=== PATIENT | female | born 1950 | race Caucasian/White ===

== ENCOUNTER 2018-01-08 09:21 | Observation (INO) | payer OTHER ==
[2018-01-08] MEDS ORDERED: LIDOCAINE 5% TOPICAL PATCH TP ONE (09:30)
[2018-01-08] MEDS ORDERED: ACETAMINOPHEN 1000 MG/100 ML VIAL (NON FORMULARY) IVPB ONE (09:30)
[2018-01-08] MEDS ORDERED: SODIUM CHLORIDE 0.9% 500 ML INFUS.BAG IV ONE ×2 (09:30→11:07)
--- NOTE | 2018-01-08 09:48 | PDOC ---
History of Present Illness - General Chief Complaint: Syncope/Near Syncope Stated Complaint: Syncope/Near Syncope History Source: Patient - History of Present Illness Initial Comments: The patient is a 67F w/ a history of a-fib (Eliquis) and 'a leaky valve' who presents from clinic s/p syncopal fall just HIDE TRIMMER. The patient endorses LOC, does not know if she hit her head, and is endorsing acute L foot pain. The patient states that she has been having 3-4 days of watery diarrhea (w/o blood), subjective fevers, productive cough (clear sputum) and chills who was at her doctor's office when she experienced an observed syncopal fall. Per EMS, the patient reportedly hit her head. She endorses LOC, does not recall hitting her head. She denies a history of syncopal falls. Currently her chief complaint is lightheadedness and L foot/ankle pain. She also endorses non-midline neck pain since her fall. She denies MEDLEY, changes in vision, chest pain, SOB, or changes in sensation. She reports taking her Eliquis this morning. 01/08/18 09:47 Past History - Past Medical History Allergies/Adverse Reactions: Allergies Allergy/AdvReac Type Severity Reaction Status Date / Time aspirin Allergy BLEEDING Verified 01/08/18 11:07 Beta-Blockers Allergy RESPIRATORY Verified 01/08/18 11:08 (Beta-Adrenergic Bloc FAILURE celery Allergy UNKNOWN Verified 01/08/18 11:07 clindamycin Allergy BOILS Verified 01/08/18 11:07 codeine Allergy Vomiting Verified 01/08/18 11:09 egg Allergy SWELLING Verified 01/08/18 11:07 THROAT gluten Allergy ABD Verified 01/08/18 11:07 PAIN/VOMITING/BLOATING Penicillins Allergy unknown Verified 01/08/18 09:27 soy Allergy SWELLING/TH Verified 01/08/18 11:07 ROAT Home Medications: Ambulatory Orders Apixaban [Eliquis] 5 mg PO BID 01/08/18 Diltiazem Cd [Cardizem Cd -] 240 mg PO DAILY 01/08/18 Furosemide [Lasix] 20 mg PO DAILY 01/08/18 Levothyroxine Sodium [Unithroid] 150 mcg PO DAILY 01/08/18 Cardiac Disorders: Yes (WPW; a-fib; HFrEF (40%); MVR; TVR) Thyroid Disease: Yes (iatrogenic hyperthyroid) - Surgical History Other Surgical History: Tonsillectomy; C/s x2 01/08/18 11:18 Review of Systems - Review of Systems Able to Perform ROS?: Yes Comments:: GENERAL/CONSTITUTIONAL: +subjective fever and chills HEAD, EYES, EARS, NOSE AND THROAT: No change in vision. No ear pain or discharge. No sore throat CARDIOVASCULAR: No chest pain or shortness of breath RESPIRATORY: + productive cough; No wheezing, or hemoptysis GASTROINTESTINAL: +watery diarrhea; No nausea, vomiting GENITOURINARY: No dysuria, frequency, or change in urination MUSCULOSKELETAL: +L foot pain that is worst over her sole; Otherwise No joint or muscle swelling or pain. No neck or back pain SKIN: No rash NEUROLOGIC: +Lightheadedness and LOC; No headache or change in strength/ sensation HEMATOLOGIC/LYMPHATIC: +Eliquis ALLERGIC/IMMUNOLOGIC: No hives or skin allergy 01/08/18 09:57 Is the patient limited Syriac proficient: No *Physical Exam - Physical Exam Comments: GENERAL: Awake, alert, and fully oriented, in no acute distress HEAD: No signs of trauma, normocephalic, atraumatic EYES: PERRL, EOMI, sclera anicteric, conjunctiva clear ENT: Hearing grossly normal, nares patent, oropharynx clear without exudates. Moist mucosa NECK: Normal ROM, supple LUNGS: No distress, speaks full sentences, clear to auscultation bilaterally HEART: Regular rate and irregular rhythm, normal S1 and S2, no murmurs appreciated, peripheral pulses normal and equal bilaterally ABDOMEN: Soft, nontender, normoactive bowel sounds. No guarding, no rebound EXTREMITIES : +L b/l malleolar TTP; +L metatarsal TTP; Normal inspection, Normal range of motion, no edema. No clubbing or cyanosis NEUROLOGICAL: Cranial nerves II through XII grossly intact. Normal speech, no focal sensorimotor deficits SKIN: L elbow abrasion approx 1.5cm x 1.5cm 01/08/18 09:59 ED Treatment Course - LABORATORY CBC & Chemistry Diagram: 01/08/18 09:45 01/08/18 09:45 - RADIOLOGY Radiology Studies Ordered: Category Date Time Status HEAD CT WITHOUT CONTRAST [CT] Stat CT Scan 08/24/18 09:29 Ordered ANKLE & FOOT-LEFT* [RAD] Stat Radiology 01/08/18 09:29 Ordered CHEST PA & LAT [RAD] Stat Radiology 01/08/18 09:29 Ordered Medical Decision Making - Medical Decision Making The patient is a 67F with a history of a-fib, HF, and hypothyroidism who presents s/p syncopal fall while at work with +LOC. Patient also reports 4d of watery/non-bloody diarrhea. She also reports new onset L foot pain s/p fall. Ddx: ACS, orthostatic hypotension, dysrhythmia, sepsis; not likely but considered stroke Patient evaluated for acute trauma. Possible L foot fx CT Head w/o evidence of acute hemorrhage CT c-spine w/o evidence of acute fx or subluxation 01/08/18 12:15 Acute L 3rd & 4th distal metatarsal fx, will splint and have pt f/u with ortho Ortho consulted (Dr. Arce) 01/08/18 12:55 Patient placed in L posterior leg splint for metatarsal fx's Patient neurovascularly intact pre and post procedure Patient counseled about alterting staff if she perceives any numbness/tingling/ change in sensation or change in color/coolness to palpation Cardiology consulted for evaluation 01/08/18 13:29 Plan for admission for under obs for ACS r/o. Patient to f/u with ortho. *DC/Admit/Observation/Transfer Diagnosis at time of Disposition: ACS (acute coronary syndrome) A-fib Qualifiers: Atrial fibrillation type: chronic Qualified Code(s): I48.2 - Chronic atrial fibrillation Hypothyroidism Qualifiers: Hypothyroidism type: unspecified Qualified Code(s): E03.9 - Hypothyroidism, unspecified - Discharge Dispostion Condition at time of disposition: Guarded Decision to Admit order: Yes - Referrals - Patient Instructions - Post Discharge Activity
[2018-01-08] MEDS ORDERED: LIDOCAINE 5% TOPICAL PATCH ONE ×2 (09:49→09:50)
[2018-01-08] MEDS ORDERED: ACETAMINOPHEN INJECTION 100 ML IVPB ONE (09:49)
--- NOTE | 2018-01-08 09:51 | PDOC ---
Attending Attestation - HPI HPI: The patient is a 67 year old female with PMHx of afib on eliquis, reported leaky valve, who presents from clinic s/p syncopal fall. Patient states that she was walking when she began feeling faint and lightheaded, lost consciousness and hit her head. She is now complaining of left foot pain as well as dorsal neck pain s/p fall. She sustained an abrasion to her left elbow. She also endorses 4 days of cough, congestion, non-bloody watery diarrhea, fever , and chills.She reports sick contact at home. Denies vomiting. States she took morning dose of eliquis today. She is unable to recall her last tetanus Denies recent travel, recent antibiotics use. Denies h/o AR or stents. Allergies: gluten Social Hx: Former smoker - Physicial Exam PE: GENERAL: Awake, alert, and fully oriented, in no acute distress HEAD: No signs of trauma EYES: PERRLA, EOMI, sclera anicteric, conjunctiva clear ENT: Auricles normal inspection, hearing grossly normal, nares patent, oropharynx clear without exudates. Moist mucosa NECK: No c-spine tenderness to palpation, right cervical paraspinal tenderness to palpation.Normal ROM, supple, no lymphadenopathy, JVD, or masses LUNGS: Breath sounds equal, clear to auscultation bilaterally. No wheezes, and no crackles HEART: Regular rate and rhythm, normal S1 and S2, no murmurs, rubs or gallops ABDOMEN: Soft, nontender, normoactive bowel sounds. No guarding, no rebound. No masses EXTREMITIES: L elbow - FROM, no tenderness. Pelvis - stable, no tenderness. L ankle - FROM, no tenderness. L foot - diffusely tender to palpaion along dorsum of left foot. 2+ DP pulses for left foot. < 2 second capillary refill. No edema. No clubbing or cyanosis. No cords or erythema. NEUROLOGICAL: Cranial nerves II through XII grossly intact. Normal speech, normal gait SKIN: Small abrasion to left elbow. Warm, Dry, normal turgor, no rashes or lesions noted. <Rhonda Lozada - Last Filed: 01/08/18 10:13> - Resident Resident Name: Lyndon Ann - ED Attending Attestation I have performed the following: I have examined & evaluated the patient, The case was reviewed & discussed with the resident, I agree w/resident's findings & plan, Exceptions are as noted - Medical Decision Making 01/08/18 10:07 A portion of this note was written by my scribe, under my supervision. Vital Signs Temp Pulse Resp BP Pulse Ox 98.9 F 86 20 93/78 96 01/08/18 09:25 01/08/18 09:25 01/08/18 09:25 01/08/18 09:25 01/08/18 09:25 67 year old female c/ hx of , hyperthyroidism, WPW, EF 40% (CHF), Mitral and tricuspid regurgitation, gluten allergy, atrial fibrillation on eliquis, "leaky valve" presents with syncope. Pt has endorsed 4 days of loose watery stool and 1 day of URI and chest congestion. Reported tactile fevers and chills at home. No nausea or vomiting. Denies recent travel, bad foods, or antibiotics. States that another person in home has URI symptoms. Pt was at work today when she felt weak, and suddenly syncopized. +LOC. Thinks she may have hit her head. now complains of left foot pain. Sustained a small abrasion to left elbow but no pain. Last tetanus is unknown. Reportedly had BP of 80s systolic which improved to 110s with IVF. Impression: syncope likely 2/2 hypovolemia. However, will need to rule out sepsis. Give IVF, labs, lactic acid, blood cultures. Cardiac etiology within differential. Will check troponin. Head and C-spine CT for head injury. left foot xray to r/o fracture. Admit. 01/08/18 12:53 CBC, BMP 01/08/18 09:45 01/08/18 09:45 CMP Sodium 141 mmol/L (136-145) 01/08/18 09:45 Potassium 3.4 mmol/L (3.5-5.1) L 01/08/18 09:45 Chloride 110 mmol/L (98-107) H 01/08/18 09:45 Carbon Dioxide 18 mmol/L (21-32) L 01/08/18 09:45 Anion Gap 13 MMOL/L (8-16) 01/08/18 09:45 BUN 10 mg/dL (7-18) 01/08/18 09:45 Creatinine 0.8 mg/dL (0.55-1.02) 01/08/18 09:45 Creat Clearance w eGFR > 60 (>60) 01/08/18 09:45 POC Glucometer 164.97443 UNITS (80-120) 01/08/18 09:40 Random Glucose 159 mg/dL (74-106) H 01/08/18 09:45 Lactic Acid 2.1 mmol/L (0.0-2.0) H 01/08/18 10:23 Calcium 8.7 mg/dL (8.5-10.1) 01/08/18 09:45 Total Bilirubin 0.3 mg/dL (0.2-1.0) 01/08/18 09:45 AST 25 U/L (15-37) 01/08/18 09:45 ALT 28 U/L (12-78) 01/08/18 09:45 Alkaline Phosphatase 106 U/L (45-117) 01/08/18 09:45 Troponin I < 0.02 ng/ml (0.00-0.05) 01/08/18 09:45 B-Natriuretic Peptide 1239.39 pg/ml (5-125) H 01/08/18 11:25 Total Protein 7.0 g/dl (6.4-8.2) 01/08/18 09:45 Albumin 3.6 g/dl (3.4-5.0) 01/08/18 09:45 TSH 0.01 uIU/ml (0.358-3.74) L 01/08/18 11:[address]-spine reviewed. no acute fractures. Foot xray reviewed. Fracture of the 3rd and 4th metatarsal. Consult orthopedics. Place posterior splint. Admit. <Wm Kam - Last Filed: 01/08/18 12:54> Heart Score/ECG Review #1 ECG reviewed & interpreted by me at: 09:30 01/08/18 09:50 afib 87, no std/donald, normal axis, normal intervals, QTC 493 msec 01/08/18 09:51 T wave flat avL <Wm Kam - Last Filed: 01/08/18 12:54>
[2018-01-08 09:59] LABS: HEMATOCRIT 45.7 % (32.4-45.2); MCH 30.4 pg (25.7-33.7); MCHC 32.8 g/dl (32.0-36.0); MEAN CELL VOLUME 92.9 fl (80-96); MEAN PLT VOLUME 9.3 fl (7.5-11.1); PLATELET COUNT 176 K/MM3 (134-434); RBC 4.92 M/mm3 (3.60-5.2); RDW 14.4 % (11.6-15.6); WHITE BLOOD COUNT 7.4 K/mm3 (4.0-10.0)
[2018-01-08] MEDS ORDERED: DIPHTH,PERTUSS(ACELL),TET 0.5 ML DISP.SYRIN IM ONE (10:04)
[2018-01-08 10:15] LABS: INR 1.6 (0.83-1.09); PROTHROMBIN TIME (PATIENT) 18.1 SEC (9.7-13.0)
[2018-01-08 10:18] LABS: ACTIVATED PTT 27.5 SECONDS (25.2-36.5)
[2018-01-08] MEDS ORDERED: ONDANSETRON 4 MG/2 ML VIAL IVPUSH ONE (12:25)
[2018-01-08 12:32] LABS: ALBUMIN 3.6 g/dl (3.4-5.0); ANION GAP 13 MMOL/L (8-16); BILIRUBIN,TOTAL 0.3 mg/dL (0.2-1.0); BLOOD UREA NITROGEN 10 mg/dL (7-18); CALCIUM 8.7 mg/dL (8.5-10.1); CHLORIDE 110 mmol/L (98-107); CO2 18 mmol/L (21-32); CREATININE 0.8 mg/dL (0.55-1.02); GLUCOSE,RANDOM 159 mg/dL (74-106); POTASSIUM 3.4 mmol/L (3.5-5.1); SGOT/AST 25 U/L (15-37); SGPT/ALT 28 U/L (12-78); SODIUM 141 mmol/L (136-145)
[2018-01-08 12:35] LABS: ALK PHOS 106 U/L (45-117)
[2018-01-08] MEDS ORDERED: morphine CARPU-JECT 4 MG/1 ML DISP.SYRIN IVPUSH ONE (12:43)
[2018-01-08] MEDS ORDERED: morphine SULFATE 4 MG/ML VIAL ONE (12:47)
[2018-01-08] MEDS ORDERED: ONDANSETRON 4 MG/2 ML VIAL ONE (12:47)
[2018-01-08 13:22] LABS: URINE APPEARANCE SLCLOUDY; URINE BILIRUBIN NEGATIVE (<2.0 mg/dL); URINE COLOR YELLOW; URINE GLUCOSE (UA) NEGATIVE (NEGATIVE); URINE KETONE NEGATIVE (NEGATIVE); URINE LEUK ESTERASE NEGATIVE (NEGATIVE); URINE NITRITE NEGATIVE (NEGATIVE); URINE UROBILINOGEN NEGATIVE mg/dL (0.2-1.0)
[2018-01-08 13:35] LABS: URINE PROTEIN 1+ (NEGATIVE)
[2018-01-08 13:38] LABS: EPI CELLS RARE /HPF (FEW); URINE HYALINE CAST 10 /lpf; URINE MUCUS RARE
--- NOTE | 2018-01-08 14:28 | HP ---
PCP: Unsure (Just started seeing a new PCP) CHIEF COMPLAINT: Left foot pain HISTORY OF PRESENT ILLNESS: This is a 67 year old woman who comes to the ER after passing out at work. She says that she remembers feeling like she was going to pass out while she was standing at work. She then remembers hearing voices and waking up on the floor. She was witnessed to hit her head on the wall. There was no seizure activity or incontinence. She complained of pain in her left foot. She reports that she had been having chills, sinus congestion, and diarrhea for the past 4 days. She denies having chest pain, SOB, palpitations prior to passing out. PAST MEDICAL HISTORY Atrial fibrillation WPW Tricuspid regurgitation Mitral regurgitation Chronic systolic heart failure (EF 40%) Hypothyroidism PAST SURGICAL HISTORY C-spine surgery Tonsillectomy Allergies aspirin Allergy (Verified 01/08/18 11:07) BLEEDING Beta-Blockers (Beta-Adrenergic Bloc Allergy (Verified 01/08/18 11:08) RESPIRATORY FAILURE celery Allergy (Verified 01/08/18 11:07) UNKNOWN clindamycin Allergy (Verified 01/08/18 11:07) BOILS codeine Allergy (Verified 01/08/18 11:09) Vomiting unknown egg Allergy (Verified 01/08/18 11:07) SWELLING THROAT gluten Allergy (Verified 01/08/18 11:07) ABD PAIN/VOMITING/BLOATING Penicillins Allergy (Verified 01/08/18 09:27) unknown soy Allergy (Verified 01/08/18 11:07) SWELLING/THROAT Home Medications Medication Instructions Recorded Apixaban [Eliquis] 10 mg PO DAILY 01/08/18 Diltiazem Cd [Cardizem Cd -] 240 mg PO DAILY 01/08/18 Furosemide [Lasix] 20 mg PO DAILY 01/08/18 Levothyroxine Sodium [Unithroid] 150 mcg PO DAILY 01/08/18 Social History: Smoking: Former smoker Alcohol: Denies Drugs: Denies Recent Travel: No Family History: Non-contributory REVIEW OF SYSTEMS CONSTITUTIONAL: Present: chills. Absent: fever, diaphoresis, generalized weakness, malaise, loss of appetite, weight change HEENT: Present: nasal congestion. Absent: rhinorrhea, throat pain, throat swelling, difficulty swallowing, mouth swelling, ear pain, eye pain, visual changes CARDIOVASCULAR: Present: syncope, lightheadedness. Absent: chest pain, palpitations, peripheral edema RESPIRATORY: Present; cough. Absent: shortness of breath, dyspnea with exertion , orthopnea, wheezing, stridor, hemoptysis GASTROINTESTINAL: Present: diarrhea. Absent: abdominal pain, abdominal distension, nausea, vomiting, constipation, melena, hematochezia GENITOURINARY: Absent: dysuria, frequency, urgency, hesitancy, hematuria, flank pain MUSCULOSKELETAL: Absent: myalgia, arthralgia, joint swelling, back pain, neck pain SKIN: Absent: rash, itching, pallor HEMATOLOGIC/IMMUNOLOGIC: Absent: easy bleeding, easy bruising, lymphadenopathy, frequent infections ENDOCRINE: Absent: unexplained weight gain, unexplained weight loss, heat intolerance, cold intolerance NEUROLOGIC: Absent: headache, focal weakness, paresthesias, unsteady gait, seizure, mental status changes, bladder or bowel incontinence PSYCHIATRIC: Absent: anxiety, depression, suicidal or homicidal ideation, hallucinations. PHYSICAL EXAMINATION Vital Signs - 24 hr 01/08/18 01/08/18 01/08/18 09:25 10:00 12:00 Temperature 98.9 F Pulse Rate 86 Pulse Rate [ 77 87 Apical] Respiratory 20 20 18 Rate Blood Pressure 93/78 Blood Pressure 104/51 110/72 [Right Arm] O2 Sat by Pulse 96 98 99 Oximetry (%) GENERAL: Awake, alert, and fully oriented, in no acute distress. HEAD: Normal with no signs of trauma. EYES: Pupils equal, round and reactive to light, extraocular movements intact, sclerae anicteric, conjunctivae clear. EARS, NOSE, THROAT: Ears normal, nares patent, oropharynx clear without exudates. Moist mucous membranes. NECK: Normal range of motion, supple without lymphadenopathy, JVD, or masses. LUNGS: Breath sounds equal, clear to auscultation bilaterally. No wheezes, and no crackles. No accessory muscle use. HEART: Irregularly irregular, (+) 2/6 systolic murmur. ABDOMEN: Soft, nontender, not distended, normoactive bowel sounds, no guarding, no rebound, no masses. No hepatomegaly or splenomegaly. MUSCULOSKELETAL: Normal range of motion at all joints. No bony deformities or tenderness. No CVA tenderness. UPPER EXTREMITIES: 2+ pulses, warm, well-perfused. No cyanosis. No clubbing. No peripheral edema. Abrasion of left elbow. LOWER EXTREMITIES: 2+ pulses, warm, well-perfused. No calf tenderness. No peripheral edema. Left foot splinted. NEUROLOGICAL: Cranial nerves II-XII intact. Normal speech. Gait not observed. PSYCHIATRIC: Cooperative. Good eye contact. Appropriate mood and affect. SKIN: Warm, dry, normal turgor, no rashes or lesions noted, normal capillary refill. Laboratory Results - last 24 hr 01/08/18 01/08/18 01/08/18 09:40 09:45 09:45 WBC 7.4 RBC 4.92 Hgb 15.0 Hct 45.7 H MCV 92.9 MCH 30.4 MCHC 32.8 RDW 14.4 Plt Count 176 MPV 9.3 PT with INR 18.10 H INR 1.60 H PTT (Actin FS) 27.5 Sodium Potassium Chloride Carbon Dioxide Anion Gap BUN Creatinine Creat Clearance w eGFR POC Glucometer 164.43653 Random Glucose Lactic Acid Calcium Total Bilirubin AST ALT Alkaline Phosphatase Troponin I B-Natriuretic Peptide Total Protein Albumin TSH Urine Color Urine Appearance Urine pH Ur Specific [place] Urine Protein Urine Glucose (UA) Urine Ketones Urine Blood Urine Nitrite Urine Bilirubin Urine Urobilinogen Ur Leukocyte Esterase Urine WBC (Auto) Urine RBC (Auto) Ur Epithelial Cells Hyaline Casts Urine Mucus 01/08/18 01/08/18 01/08/18 09:45 10:23 11:25 WBC RBC Hgb Hct MCV MCH MCHC RDW Plt Count MPV PT with INR INR PTT (Actin FS) Sodium 141 Potassium 3.4 L Chloride 110 H Carbon Dioxide 18 L Anion Gap 13 BUN 10 Creatinine 0.8 Creat Clearance w eGFR > 60 POC Glucometer Random Glucose 159 H Lactic Acid 2.1 H Calcium 8.7 Total Bilirubin 0.3 AST 25 ALT 28 Alkaline Phosphatase 106 Troponin I < 0.02 B-Natriuretic Peptide Total Protein 7.0 Albumin 3.6 TSH 0.01 L Urine Color Urine Appearance Urine pH Ur Specific Firestone Urine Protein Urine Glucose (UA) Urine Ketones Urine Blood Urine Nitrite Urine Bilirubin Urine Urobilinogen Ur Leukocyte Esterase Urine WBC (Auto) Urine RBC (Auto) Ur Epithelial Cells Hyaline Casts Urine Mucus 01/08/18 01/08/18 11:25 13:10 WBC RBC Hgb Hct MCV MCH MCHC RDW Plt Count MPV PT with INR INR PTT (Actin FS) Sodium Potassium Chloride Carbon Dioxide Anion Gap BUN Creatinine Creat Clearance w eGFR POC Glucometer Random Glucose Lactic Acid Calcium Total Bilirubin AST ALT Alkaline Phosphatase Troponin I B-Natriuretic Peptide 1239.39 H Total Protein Albumin TSH Urine Color Yellow Urine Appearance Slcloudy Urine pH 5.0 Ur Specific Firestone 1.025 Urine Protein 1+ H Urine Glucose (UA) Negative Urine Ketones Negative Urine Blood Negative Urine Nitrite Negative Urine Bilirubin Negative Urine Urobilinogen Negative Ur Leukocyte Esterase Negative Urine WBC (Auto) 4 Urine RBC (Auto) 4 Ur Epithelial Cells Rare Hyaline Casts 10 Urine Mucus Rare ASSESSMENT/PLAN: This is a 67 year old woman with a history of chronic systolic heart failure, atrial fib, TR, MR, WPW, hypothyroidism who presented to the ED today after passing out, falling, and hitting her head at work. 1. Syncope - Likely secondary to hypovolemia - Has history of WPW so need to evaluate for arrhythmia - Observe on telemetry - Given IV fluid in ED and appears euvolemic - Serial troponins - Check orthostatics - Cardiology consult 2. s/p fall with head trauma - Initial head CT shows no bleed - No complaints of headache and neurological exam unremarkable - Repeat head CT 3. Left distal 3rd and 4th metatarsal fractures - Splint applied in ED - Ortho consult 4. Lactic acidemia - Likely secondary to hypovolemia - Repeat lactic acid after IV hydration 5. Hypokalemia - Replete potassium 6. Chronic systolic heart failure - Continue Lasix 7. Severe tricuspid regurgitation 8. Moderate mitral regurgitation 9. Permanent a fib - Continue Cardizem CD, Eliquis 10. History of WPW 11. Hypothyroidism - Continue Unithroid 12. Pansinusitis - Likely viral as patient as no leukocytosis, fever so will not start antibiotics Visit type - Emergency Visit Emergency Visit: Yes ED Registration Date: 01/08/18 Care time: The patient presented to the Emergency Department on the above date and was hospitalized for further evaluation of their emergent condition. - New Patient This patient is new to me today: Yes Date on this admission: 01/08/18 - Critical Care Critical Care patient: No Hospitalist Screening - Colonoscopy Questionnaire Colonoscopy Questionnaire: Colonoscopy Questionnaire - Patient: 50 - 75 years old and never had a screening colonoscopy: No History of colon or rectal polyps, or CA: No History of IBD, Crohn's disease or UC: No History of abdominal radiation therapy as a child: No - Relative: 1 with colon or rectal CA, or polyps at age 60 or younger: No Colon or rectal CA diagnosed at age 45 or younger: No Multiple relatives with colon or rectal CA: No - Outcome: Screening Result: Negative Screen
[2018-01-08] MEDS ORDERED: POTASSIUM CHLORIDE TABS 20 MEQ TABLET.ER (FP) PO ONE (14:39)
[2018-01-08] MEDS: BACITRACIN 15 GM TUBE TOPICAL OINTMENT TP SCH (14:50)
[2018-01-08] MEDS ORDERED: BACITRACIN 0.9 GM PACKET ONE (14:51)
--- NOTE | 2018-01-08 15:26 | CON.CARD ---
Consult Consult Specialty:: Cardiology Referred by:: Mc Reason for Consultation:: syncope, h/o afib - History of Present Illness Chief Complaint: syncope History of Present Illness: 67F h/o afib on eliquis, CHF EF 40%, MR and TR p/w syncope. [place] faint and lightheaded when walking, lost consciousness and hit her head. Has small children at home, child was sick, for the last four days she has had cough, congestion, diarrhea, fever, chills. In the ER complained of foot pain, has foot fx with splint on. Received IVF. Troponin neg x 1, lactate 2.1, BNP 1200. Sees Dr. Flores for cardiology. - Past Medical History Cardio/Vascular: Yes: AFIB - Alcohol/Substance Use Hx Alcohol Use: No - Smoking History Smoking history: Former smoker Have you smoked in the past 12 months: No If you are a former smoker, when did you quit?: 1989 Home Medications - Allergies Allergies/Adverse Reactions: Allergies Allergy/AdvReac Type Severity Reaction Status Date / Time aspirin Allergy BLEEDING Verified 01/08/18 11:07 Beta-Blockers Allergy RESPIRATORY Verified 01/08/18 11:08 (Beta-Adrenergic Bloc FAILURE celery Allergy UNKNOWN Verified 01/08/18 11:07 clindamycin Allergy BOILS Verified 01/08/18 11:07 codeine Allergy Vomiting Verified 01/08/18 11:09 egg Allergy SWELLING Verified 01/08/18 11:07 THROAT gluten Allergy ABD Verified 01/08/18 11:07 PAIN/VOMITING/BLOATING Penicillins Allergy unknown Verified 01/08/18 09:27 soy Allergy SWELLING/TH Verified 01/08/18 11:07 ROAT - Home Medications Home Medications: Ambulatory Orders Apixaban [Eliquis] 5 mg PO BID 01/08/18 Diltiazem Cd [Cardizem Cd -] 240 mg PO DAILY 01/08/18 Furosemide [Lasix] 20 mg PO DAILY 01/08/18 Levothyroxine Sodium [Unithroid] 150 mcg PO DAILY 01/08/18 Vital Signs: Vital Signs Temperature 98.9 F 01/08/18 09:25 Pulse Rate 87 01/08/18 12:00 Respiratory Rate 18 01/08/18 12:00 Blood Pressure 110/72 01/08/18 12:00 O2 Sat by Pulse Oximetry (%) 99 01/08/18 12:00 - Other Data Labs, Other Data: CBC, BMP 01/08/18 09:45 01/08/18 09:45 INR, PTT INR 1.60 (0.83-1.09) H 01/08/18 09:45 Troponin, BNP 01/08/18 01/08/18 09:45 11:25 Troponin I < 0.02 B-Natriuretic Peptide 1239.39 H Troponin, BNP 01/08/18 01/08/18 09:45 11:25 Troponin I < 0.02 B-Natriuretic Peptide 1239.39 H Assessment/Plan Echo 11/2017 tds, mild AVT, trace AI, MVT wtih mod MR, very severe TR with nl RV function and no PHTN, severe STAS, EF ~50%, cannot r/o small WMA, was in afib. EKG: afib, nonspecific T wave changes CXR: no acute process 67F h/o afib on eliquis, CHF EF 50%, MR and TR p/w syncope syncope - likely in setting of hypovolemia - IVF, infectious workup per primary team - monitor on tele, h/o arrhythmia however history more consistent with hypovolemia - has received IVF, would use cautiously give h/o CHF - monitoring on tele Afib - continue diltiazem, eliquis right side CHF, mod MR, severe TR - euvolemic on exam - on lasix 20 mg BID at home, sometimes does not take PM dose if feels euvolemic - daily weights, monitor I/o trend Cr hypothyroidism - per primary team
[2018-01-08] MEDS ORDERED: MORPHINE SULFATE 2 MG/ML VIAL ONE (16:34)
[2018-01-08] MEDS: MORPHINE SULFATE 2 MG/ML VIAL IVPUSH PRN ×2 (16:40→23:39)
[2018-01-08] MEDS: ACETAMINOPHEN 325 MG TABLET (FP) PO PRN (21:15)
[2018-01-08] MEDS: LIDOCAINE PATCH REMOVAL MC SCH (21:20)
[2018-01-08] MEDS: ONDANSETRON 4 MG/2 ML VIAL IVPUSH PRN (23:39)
[2018-01-08] MEDS: APIXABAN 5 MG TABLET PO SCH (23:49)
[2018-01-09 01:01] VITALS: BMI 30.2
[2018-01-09] MEDS: LEVOTHYROXINE SODIUM 137 MCG PO SCH (02:34)
[2018-01-09] MEDS: ONDANSETRON 4 MG/2 ML VIAL IVPUSH PRN ×3 (05:01→17:04)
[2018-01-09] MEDS: MORPHINE SULFATE 2 MG/ML VIAL IVPUSH PRN ×3 (05:01→17:03)
[2018-01-09 08:24] LABS: HEMATOCRIT 40.1 % (32.4-45.2); HEMOGLOBIN 13.3 GM/dL (10.7-15.3); MCH 30.8 pg (25.7-33.7); MCHC 33.1 g/dl (32.0-36.0); MEAN CELL VOLUME 93.3 fl (80-96); MEAN PLT VOLUME 9.5 fl (7.5-11.1); PLATELET COUNT 153 K/MM3 (134-434); RDW 14.5 % (11.6-15.6); WHITE BLOOD COUNT 7.8 K/mm3 (4.0-10.0)
[2018-01-09 08:47] LABS: ANION GAP 7 MMOL/L (8-16); BLOOD UREA NITROGEN 7 mg/dL (7-18); CALCIUM 8.3 mg/dL (8.5-10.1); CHLORIDE 107 mmol/L (98-107); CO2 27 mmol/L (21-32); CREATININE 0.6 mg/dL (0.55-1.02); GLUCOSE,RANDOM 103 mg/dL (74-106); SODIUM 141 mmol/L (136-145)
[2018-01-09] MEDS: ACETAMINOPHEN 325 MG TABLET (FP) PO PRN ×3 (08:59→20:04)
[2018-01-09] MEDS: FUROSEMIDE 20 MG TABLET (FP) PO SCH (09:03)
[2018-01-09] MEDS: APIXABAN 5 MG TABLET PO SCH ×2 (09:03→23:14)
[2018-01-09] MEDS ORDERED: LEVOTHYROXINE SODIUM 150 MCG PO SCH (10:00)
--- NOTE | 2018-01-09 10:24 | PN ---
Progress Note (short form) - Note Progress Note: cc: syncope s: no chest pain, palps, dizzy, lightheaded. coughing this morning tele: afib controlled. episodes of HR 120s-140s with cough Current Medications Acetaminophen (Tylenol -) 650 mg PO Q4H PRN PRN Reason: PAIN LEVEL 1-5 Last Admin: 01/09/18 08:59 Dose: 650 mg Apixaban (Eliquis -) 5 mg PO BID [facility] Last Admin: 01/09/18 09:03 Dose: 5 mg Bacitracin (Bacitracin -) 1 applic TP DAILY [facility] Last Admin: 01/08/18 14:50 Dose: 1 applic Diltiazem HCl (Cardizem Cd -) 240 mg PO DAILY@0300 [facility] Last Admin: 01/09/18 02:34 Dose: 240 mg Furosemide (Lasix -) 20 mg PO DAILY [facility] Last Admin: 01/09/18 09:03 Dose: 20 mg Miscellaneous (Lidoderm Patch Removal) 1 each MC DAILY@2200 [facility] Last Admin: 01/08/18 21:20 Dose: 1 each Morphine Sulfate (Morphine Sulfate) 2 mg IVPUSH Q6H PRN PRN Reason: PAIN LEVEL 7 - 10 Last Admin: 01/09/18 05:01 Dose: 2 mg Levothyroxine Sodium (Unithroid) 137 Mcg Tablet (Pt's Own) 0 mcg PO DAILY@0300 [facility] Last Admin: 01/09/18 02:34 Dose: 137 mcg Ondansetron HCl (Zofran Injection) 4 mg IVPUSH Q6H PRN PRN Reason: NAUSEA AND/OR VOMITING Last Admin: 01/09/18 05:01 Dose: 4 mg Vital Signs: Vital Signs Period Temp Pulse Resp BP Sys/Ramirez Pulse Ox Last 24 Hr 97.8 F-98.7 F 64-97 16-20 110-147/60-91 96-99 Exam NAD, calm no JVD irregular, nl S1, S2, III/ systolic murmur no edema abd soft nt, nd, nl bs aox3 Assessment/Plan Echo 11/2017 tds, mild AVT, trace AI, MVT wtih mod MR, very severe TR with nl RV function and no PHTN, severe STAS, EF ~50%, cannot r/o small WMA, was in afib. EKG: afib, nonspecific T wave changes CXR: no acute process 67F h/o afib on eliquis, CHF EF 50%, MR and TR p/w syncope syncope - likely in setting of hypovolemia, received IVF, lactate improved - trop neg x 2 - likely viral infection - monitor on tele, h/o arrhythmia however history more consistent with hypovolemia - cautious use of IVF due to h/o CHF - carotid ultrasound ordered Afib - continue diltiazem, eliquis - discussed with patient and reviewed note from Dr. Flores, denies h/o WPW right side CHF, mod MR, severe TR - euvolemic on exam - on lasix 20 mg BID at home, sometimes does not take PM dose if feels euvolemic , continue lasix 20 mg daily with additional dose of 20 mg this afternoon as patient feels her face is swollen, got IVF yesterday - daily weights, monitor I/o trend Cr hypothyroidism - per primary team
[2018-01-09] MEDS: BACITRACIN 15 GM TUBE TOPICAL OINTMENT TP SCH (11:09)
--- NOTE | 2018-01-09 12:13 | PN ---
Progress Note (short form) - Note Progress Note: Pt seen and examined. She is a 67 year old F 2 days s/p fall, with c/o pain in the left foot. Xrays done in the ER comfirm acute, minimally displaced fractures of the left foot, 3rd and 4th metatarsal necks. PE In a well molded posterior splint. Grossly NVI. Minimal swelling. + tender over midfoot and forefoot Imp Acute fractures of the left foot 3 and 4th metatarsals. Rec In splint, leave on. TTWB, walker or crutches Can be DC'd from an ortho pov [facility] F/u as an out pt in 7-10 days
--- NOTE | 2018-01-09 13:39 | PN ---
Progress Note (short form) - Note Progress Note: Subjective: The patient was seen and examined at the bedside, she has no complaints at this time. F/u carotid doppler Patient reports her TSH was recently low with pcp and that she has been waiting for her pharmacy ([facility] to send her the lower dose of Unithroid. Patient does not want to take Synthyroid as she states it is not gluten free Current Medications Generic Name Dose Route Start Last Admin Trade Name Freq PRN Reason Stop Dose Admin Acetaminophen 650 mg 01/08/18 14:29 01/09/18 08:59 Tylenol - PO 650 mg Q4H PRN Administration PAIN LEVEL 1-5 Apixaban 5 mg 01/08/18 22:00 01/09/18 09:03 Eliquis - PO 5 mg BID [facility] Administration Bacitracin 1 applic 01/08/18 14:45 01/09/18 11:09 Bacitracin - TP 1 applic DAILY [facility] Administration Diltiazem HCl 240 mg 01/09/18 03:00 01/09/18 02:34 Cardizem Cd - PO 240 mg DAILY@0300 [facility] Administration Furosemide 20 mg 01/09/18 10:00 01/09/18 09:03 Lasix - PO 20 mg DAILY [facility] Administration Furosemide 20 mg 01/09/18 15:00 Lasix - PO 01/09/18 15:01 ONCE ONE Miscellaneous 1 each 01/08/18 22:00 01/08/18 21:20 Lidoderm Patch Removal MC 1 each DAILY@2200 [facility] Administration Morphine Sulfate 2 mg 01/08/18 14:45 01/09/18 11:07 Morphine Sulfate IVPUSH 2 mg Q6H PRN Administration PAIN LEVEL 7 - 10 Levothyroxine Sodium 0 mcg 01/09/18 03:00 01/09/18 02:34 (Unithroid) 137 Mcg PO 137 mcg Tablet (Pt's Own) DAILY@0300 [facility] Administration Ondansetron HCl 4 mg 01/08/18 20:30 01/09/18 11:10 Zofran Injection IVPUSH 4 mg Q6H PRN Administration NAUSEA AND/OR VOMITING Objective: Vital Signs Period Temp Pulse Resp BP Sys/Ramirez Pulse Ox Last 24 Hr 97.8 F-98.7 F 64-97 16-20 110-147/60-91 96-99 Physical Exam: Patient refused CBCD WBC 7.8 K/mm3 (4.0-10.0) 01/09/18 06:40 RBC 4.30 M/mm3 (3.60-5.2) 01/09/18 06:40 Hgb 13.3 GM/dL (10.7-15.3) 01/09/18 06:40 Hct 40.1 % (32.4-45.2) 01/09/18 06:40 MCV 93.3 fl (80-96) 01/09/18 06:40 MCHC 33.1 g/dl (32.0-36.0) 01/09/18 06:40 RDW 14.5 % (11.6-15.6) 01/09/18 06:40 Plt Count 153 K/MM3 (134-434) 01/09/18 06:40 MPV 9.5 fl (7.5-11.1) 01/09/18 06:40 CMP Sodium 141 mmol/L (136-145) 01/09/18 06:40 Potassium 4.0 mmol/L (3.5-5.1) 01/09/18 06:40 Chloride 107 mmol/L (98-107) 01/09/18 06:40 Carbon Dioxide 27 mmol/L (21-32) 01/09/18 06:40 Anion Gap 7 MMOL/L (8-16) L 01/09/18 06:40 BUN 7 mg/dL (7-18) 01/09/18 06:40 Creatinine 0.6 mg/dL (0.55-1.02) 01/09/18 06:40 Creat Clearance w eGFR > 60 (>60) 01/09/18 06:40 Random Glucose 103 mg/dL (74-106) 01/09/18 06:40 Calcium 8.3 mg/dL (8.5-10.1) L 01/09/18 06:40 Total Bilirubin 0.3 mg/dL (0.2-1.0) 01/08/18 09:45 AST 25 U/L (15-37) 01/08/18 09:45 ALT 28 U/L (12-78) 01/08/18 09:45 Alkaline Phosphatase 106 U/L (45-117) 01/08/18 09:45 Total Protein 7.0 g/dl (6.4-8.2) 01/08/18 09:45 Albumin 3.6 g/dl (3.4-5.0) 01/08/18 09:45 CARDIAC ENZYMES Troponin I 0.02 ng/ml (0.00-0.05) 01/08/18 23:45 Microbiology 01/08/18 09:53 Blood - Peripheral Venous Blood Culture - Preliminary NO GROWTH OBTAINED AFTER 24 HOURS, INCUBATION TO CONTINUE FOR 4 DAYS. 01/08/18 09:53 Blood - Peripheral Venous Blood Culture - Preliminary NO GROWTH OBTAINED AFTER 24 HOURS, INCUBATION TO CONTINUE FOR 4 DAYS. Assessment: This is a 67 year old female with PMHx of a.fib, hypothyroidism, right sided CHF, mod MR, severe TR, who presented to the ED s/p syncope Plan: 1) Syncope - Per cards, likely 2/2 hypovolema - Patient reports feeling better - F/u carotid dopplers - Patient had recent ECHO 11/2017: mild AVT, trace AI, MVT wtih mod MR, very severe TR with nl RV function and no PHTN, severe STAS, EF ~50%, cannot r/o small WMA, was in afib - Appreciate cardiology consult: no further inpatient cardiac workup 2) Acute fracture of left foot 3rd and 4th metatarsal - Continue with splint - TTWB with walker or crutches. Awaiting PT evaluation (patient has steps at home) - Appreciate ortho consult: f/u outpatient in 7-10 days 3) A.fib - Continue Eliquis - Continue Diltiazem - Elevated rates on tele, per cards states likely in setting of couging - No changes to medications per cards 4) Right side CHF - Euvolemic per cards - Lasix 20mg daily, additional dose this afternoon 5) Hypothyroidism - Patient was recently told by pcp to decrease dose of Unithroid, patient reports she has not received the new dosing from her pharmacy yet. She does not know what the new dosing is - TSH 0.01. Awaiting T3 level Visit type - Emergency Visit Emergency Visit: Yes ED Registration Date: 01/08/18 Care time: The patient presented to the Emergency Department on the above date and was hospitalized for further evaluation of their emergent condition. - New Patient This patient is new to me today: Yes Date on this admission: 01/10/18 - Critical Care Critical Care patient: No
[2018-01-09] MEDS ORDERED: FUROSEMIDE 20 MG TABLET (FP) PO ONE (15:00)
--- NOTE | 2018-01-09 19:23 | EKG ---
Test Reason : Blood Pressure : / mmHG Vent. Rate : 087 BPM Atrial Rate : 081 BPM P-R Int : 000 ms QRS Dur : 084 ms QT Int : 410 ms P-R-T Axes : 000 060 000 degrees QTc Int : 493 ms ATRIAL FIBRILLATION NONSPECIFIC T WAVE ABNORMALITY PROLONGED QT ABNORMAL ECG NO PREVIOUS ECGS AVAILABLE Confirmed by LIZBETH RUBIO MD ([id number]) on 01/09/2018 7:22:46 PM Referred By: Confirmed By:LIZBETH RUBIO MD
[2018-01-09] MEDS: LIDOCAINE PATCH REMOVAL MC SCH (23:17)
[2018-01-10] MEDS: ACETAMINOPHEN 325 MG TABLET (FP) PO PRN ×3 (01:23→17:37)
[2018-01-10] MEDS: LEVOTHYROXINE SODIUM 137 MCG PO SCH (02:29)
[2018-01-10] MEDS ORDERED: PT OWN MED DRAWER 7, Y5N ONE ×2 (02:49→15:03)
[2018-01-10] MEDS: FUROSEMIDE 20 MG TABLET (FP) PO SCH (10:42)
[2018-01-10] MEDS: ONDANSETRON 4 MG/2 ML VIAL IVPUSH PRN ×2 (10:42→18:34)
[2018-01-10] MEDS: APIXABAN 5 MG TABLET PO SCH ×2 (10:42→21:17)
[2018-01-10] MEDS: MORPHINE SULFATE 2 MG/ML VIAL IVPUSH PRN ×2 (10:42→18:33)
--- NOTE | 2018-01-10 11:18 | PN ---
Progress Note (short form) - Note Progress Note: Subjective: The patient was seen and examined at the bedside, she is working with PT now. She was able to ambulate about 5 feet with the walker before feeling fatigued. She is going to try crutches Weight bearing status: TTWB Discussed with patient possibility of SNF, discussed with Patt (continuing pet care technician) who will look into benefits Current Medications Generic Name Dose Route Start Last Admin Trade Name Freq PRN Reason Stop Dose Admin Acetaminophen 650 mg 01/08/18 14:29 01/10/18 05:52 Tylenol - PO 650 mg Q4H PRN Administration PAIN LEVEL 1-5 Apixaban 5 mg 01/08/18 22:00 01/10/18 10:42 Eliquis - PO 5 mg BID [facility] Administration Bacitracin 1 applic 01/08/18 14:45 01/09/18 11:09 Bacitracin - TP 1 applic DAILY [facility] Administration Diltiazem HCl 240 mg 01/09/18 03:00 01/10/18 02:28 Cardizem Cd - PO 240 mg DAILY@0300 [facility] Administration Furosemide 20 mg 01/09/18 10:00 01/10/18 10:42 Lasix - PO 20 mg DAILY [facility] Administration Miscellaneous 1 each 01/08/18 22:00 01/09/18 23:17 Lidoderm Patch Removal MC 1 each DAILY@2200 [facility] Administration Morphine Sulfate 2 mg 01/08/18 14:45 01/10/18 10:42 Morphine Sulfate IVPUSH 2 mg Q6H PRN Administration PAIN LEVEL 7 - 10 Levothyroxine Sodium 0 mcg 01/09/18 03:00 01/10/18 02:29 (Unithroid) 137 Mcg PO 137 mcg Tablet (Pt's Own) DAILY@0300 [facility] Administration Ondansetron HCl 4 mg 01/08/18 20:30 01/10/18 10:42 Zofran Injection IVPUSH 4 mg Q6H PRN Administration NAUSEA AND/OR VOMITING Objective: Vital Signs Period Temp Pulse Resp BP Sys/Ramirez Pulse Ox Last 24 Hr 97.4 F-98.0 F 55-95 16-20 106-130/57-81 94-94 Physical Exam: Was ambulating with PT. Left foot in splint CBCD WBC 7.8 K/mm3 (4.0-10.0) 01/09/18 06:40 RBC 4.30 M/mm3 (3.60-5.2) 01/09/18 06:40 Hgb 13.3 GM/dL (10.7-15.3) 01/09/18 06:40 Hct 40.1 % (32.4-45.2) 01/09/18 06:40 MCV 93.3 fl (80-96) 01/09/18 06:40 MCHC 33.1 g/dl (32.0-36.0) 01/09/18 06:40 RDW 14.5 % (11.6-15.6) 01/09/18 06:40 Plt Count 153 K/MM3 (134-434) 01/09/18 06:40 MPV 9.5 fl (7.5-11.1) 01/09/18 06:40 CMP Sodium 141 mmol/L (136-145) 01/09/18 06:40 Potassium 4.0 mmol/L (3.5-5.1) 01/09/18 06:40 Chloride 107 mmol/L (98-107) 01/09/18 06:40 Carbon Dioxide 27 mmol/L (21-32) 01/09/18 06:40 Anion Gap 7 MMOL/L (8-16) L 01/09/18 06:40 BUN 7 mg/dL (7-18) 01/09/18 06:40 Creatinine 0.6 mg/dL (0.55-1.02) 01/09/18 06:40 Creat Clearance w eGFR > 60 (>60) 01/09/18 06:40 Random Glucose 103 mg/dL (74-106) 01/09/18 06:40 Calcium 8.3 mg/dL (8.5-10.1) L 01/09/18 06:40 Total Bilirubin 0.3 mg/dL (0.2-1.0) 01/08/18 09:45 AST 25 U/L (15-37) 01/08/18 09:45 ALT 28 U/L (12-78) 01/08/18 09:45 Alkaline Phosphatase 106 U/L (45-117) 01/08/18 09:45 Total Protein 7.0 g/dl (6.4-8.2) 01/08/18 09:45 Albumin 3.6 g/dl (3.4-5.0) 01/08/18 09:45 CARDIAC ENZYMES Troponin I 0.02 ng/ml (0.00-0.05) 01/08/18 23:45 Microbiology 01/08/18 09:53 Blood - Peripheral Venous Blood Culture - Preliminary NO GROWTH OBTAINED AFTER 48 HOURS, INCUBATION TO CONTINUE FOR 3 DAYS. 01/08/18 09:53 Blood - Peripheral Venous Blood Culture - Preliminary NO GROWTH OBTAINED AFTER 48 HOURS, INCUBATION TO CONTINUE FOR 3 DAYS. Assessment: This is a 67 year old female with PMHx of a.fib, hypothyroidism, right sided CHF, mod MR, severe TR, who presented to the ED s/p syncope Plan: 1) Syncope - Per cards, likely 2/2 hypovolema - Patient reports feeling better - Carotid doppler with no evidence of hemodynamically significant stenosis - Patient had recent ECHO 11/2017: mild AVT, trace AI, MVT wtih mod MR, very severe TR with nl RV function and no PHTN, severe STAS, EF ~50%, cannot r/o small WMA, was in afib - Appreciate cardiology consult: no further inpatient cardiac workup 2) Acute fracture of left foot 3rd and 4th metatarsal - Continue with splint - TTWB with walker or crutches. Awaiting PT evaluation (patient has steps at home) - Appreciate ortho consult: f/u outpatient in 7-10 days 3) A.fib - Continue Eliquis - Continue Diltiazem - Elevated rates on tele, per cards states likely in setting of couging - No changes to medications per cards 4) Right side CHF - Euvolemic per cards - Lasix 20mg daily, additional dose this afternoon 5) Hypothyroidism - Patient was recently told by pcp to decrease dose of Unithroid, patient reports she has not received the new dosing from her pharmacy yet. She does not know what the new dosing is - TSH 0.01. T4 1.68, T3 2.5 - Recommendation to decrease Unithroid to 125mcg with follow-up as outpatient in 4-6 weeks for repeat TSH testing. Patient is unable to take Synthroid, and unithroid is non-formulary here (patient is taking own med which is 137mcg). Will recommend starting Unithroid 125mcg on discharge Visit type - Emergency Visit Emergency Visit: Yes ED Registration Date: 01/08/18 Care time: The patient presented to the Emergency Department on the above date and was hospitalized for further evaluation of their emergent condition. - New Patient This patient is new to me today: No - Critical Care Critical Care patient: No
--- NOTE | 2018-01-10 11:38 | PN ---
Progress Note (short form) - Note Progress Note: cc: syncope s: no chest pain, palps, dizzy, lightheaded tele: afib with frequent episodes of HR 120s-140s during episodes of coughing, after walking with PT this morning Current Medications Acetaminophen (Tylenol -) 650 mg PO Q4H PRN PRN Reason: PAIN LEVEL 1-5 Last Admin: 01/10/18 05:52 Dose: 650 mg Apixaban (Eliquis -) 5 mg PO BID [facility] Last Admin: 01/10/18 10:42 Dose: 5 mg Bacitracin (Bacitracin -) 1 applic TP DAILY [facility] Last Admin: 01/09/18 11:09 Dose: 1 applic Diltiazem HCl (Cardizem Cd -) 240 mg PO DAILY@0300 [facility] Last Admin: 01/10/18 02:28 Dose: 240 mg Furosemide (Lasix -) 20 mg PO DAILY [facility] Last Admin: 01/10/18 10:42 Dose: 20 mg Miscellaneous (Lidoderm Patch Removal) 1 each MC DAILY@2200 [facility] Last Admin: 01/09/18 23:17 Dose: 1 each Morphine Sulfate (Morphine Sulfate) 2 mg IVPUSH Q6H PRN PRN Reason: PAIN LEVEL 7 - 10 Last Admin: 01/10/18 10:42 Dose: 2 mg Levothyroxine Sodium (Unithroid) 137 Mcg Tablet (Pt's Own) 0 mcg PO DAILY@0300 [facility] Last Admin: 01/10/18 02:29 Dose: 137 mcg Ondansetron HCl (Zofran Injection) 4 mg IVPUSH Q6H PRN PRN Reason: NAUSEA AND/OR VOMITING Last Admin: 01/10/18 10:42 Dose: 4 mg Vital Signs: Vital Signs Period Temp Pulse Resp BP Sys/Ramirez Pulse Ox Last 24 Hr 97.4 F-98.0 F 55-95 16-20 106-130/57-81 94-94 NAD, calm no JVD irregular, nl S1, S2, III/ systolic murmur no edema abd soft nt, nd, nl bs aox3 Assessment/Plan Echo 11/2017 tds, mild AVT, trace AI, MVT wtih mod MR, very severe TR with nl RV function and no PHTN, severe STAS, EF ~50%, cannot r/o small WMA, was in afib. EKG: afib, nonspecific T wave changes CXR: no acute process 67F h/o afib on eliquis, CHF EF 50%, MR and TR p/w syncope syncope - likely in setting of hypovolemia, received IVF, lactate improved - trop neg x 2 - likely viral infection - monitor on tele, h/o arrhythmia however history more consistent with hypovolemia - cautious use of IVF due to h/o CHF - carotid ultrasound no significant stenosis Afib - continue diltiazem, eliquis - brief high rates episodes in setting of coughing, foot pain with walking. generally controlled, continue current dose of cardizem. consider dose increase if sustains higher rates right side CHF, mod MR, severe TR - euvolemic on exam - on lasix 20 mg BID at home, sometimes does not take PM dose if feels euvolemic , continue lasix 20 mg daily with additional dose of 20 mg this afternoon as patient feels her face is swollen, got IVF yesterday - daily weights, monitor I/o trend Cr hypothyroidism - per primary team
[2018-01-10] MEDS: BACITRACIN 15 GM TUBE TOPICAL OINTMENT TP SCH (14:30)
[2018-01-10] MEDS: LIDOCAINE PATCH REMOVAL MC SCH (21:20)
[2018-01-11] MEDS ORDERED: PT OWN MED DRAWER 7, Y5N ONE ×4 (02:02→11:38)
[2018-01-11] MEDS: LEVOTHYROXINE SODIUM 137 MCG PO SCH (02:49)
--- NOTE | 2018-01-11 09:55 | PN ---
Progress Note (short form) - Note Progress Note: Subjective: The patient was seen and examined at the bedside, she is awaiting possible SNF placement vs. home with services Discussed above with [facility] Script for walker given to [facility] Current Medications Generic Name Dose Route Start Last Admin Trade Name Freq PRN Reason Stop Dose Admin Acetaminophen 650 mg 01/08/18 14:29 01/10/18 17:37 Tylenol - PO 650 mg Q4H PRN Administration PAIN LEVEL 1-5 Apixaban 5 mg 01/08/18 22:00 01/10/18 21:17 Eliquis - PO 5 mg BID [facility] Administration Bacitracin 1 applic 01/08/18 14:45 01/10/18 14:30 Bacitracin - TP 1 applic DAILY [facility] Administration Diltiazem HCl 240 mg 01/09/18 03:00 01/11/18 02:49 Cardizem Cd - PO 240 mg DAILY@0300 [facility] Administration Furosemide 20 mg 01/09/18 10:00 01/10/18 10:42 Lasix - PO 20 mg DAILY [facility] Administration Miscellaneous 1 each 01/08/18 22:00 01/10/18 21:20 Lidoderm Patch Removal MC Not Given DAILY@2200 [facility] Morphine Sulfate 2 mg 01/08/18 14:45 01/10/18 18:33 Morphine Sulfate IVPUSH 2 mg Q6H PRN Administration PAIN LEVEL 7 - 10 Levothyroxine Sodium 0 mcg 01/09/18 03:00 01/11/18 02:49 (Unithroid) 137 Mcg PO 137 mcg Tablet (Pt's Own) DAILY@0300 [facility] Administration Ondansetron HCl 4 mg 01/08/18 20:30 01/10/18 18:34 Zofran Injection IVPUSH 4 mg Q6H PRN Administration NAUSEA AND/OR VOMITING Objective: Vital Signs Period Temp Pulse Resp BP Sys/Ramirez Pulse Ox Last 24 Hr 97.4 F-98.1 F 80-96 16-20 106-132/59-75 95-95 Physical Exam: General: NAD, A&Ox3 Lungs: CTA bilaterally Heart: Irregular, S1S2. +murmur Abd: Soft, non-tender, non-distended Ext: Left leg splint CBCD WBC 7.8 K/mm3 (4.0-10.0) 01/09/18 06:40 RBC 4.30 M/mm3 (3.60-5.2) 01/09/18 06:40 Hgb 13.3 GM/dL (10.7-15.3) 01/09/18 06:40 Hct 40.1 % (32.4-45.2) 01/09/18 06:40 MCV 93.3 fl (80-96) 01/09/18 06:40 MCHC 33.1 g/dl (32.0-36.0) 01/09/18 06:40 RDW 14.5 % (11.6-15.6) 01/09/18 06:40 Plt Count 153 K/MM3 (134-434) 01/09/18 06:40 MPV 9.5 fl (7.5-11.1) 01/09/18 06:40 CMP Sodium 141 mmol/L (136-145) 01/09/18 06:40 Potassium 4.0 mmol/L (3.5-5.1) 01/09/18 06:40 Chloride 107 mmol/L (98-107) 01/09/18 06:40 Carbon Dioxide 27 mmol/L (21-32) 01/09/18 06:40 Anion Gap 7 MMOL/L (8-16) L 01/09/18 06:40 BUN 7 mg/dL (7-18) 01/09/18 06:40 Creatinine 0.6 mg/dL (0.55-1.02) 01/09/18 06:40 Creat Clearance w eGFR > 60 (>60) 01/09/18 06:40 Random Glucose 103 mg/dL (74-106) 01/09/18 06:40 Calcium 8.3 mg/dL (8.5-10.1) L 01/09/18 06:40 Total Bilirubin 0.3 mg/dL (0.2-1.0) 01/08/18 09:45 AST 25 U/L (15-37) 01/08/18 09:45 ALT 28 U/L (12-78) 01/08/18 09:45 Alkaline Phosphatase 106 U/L (45-117) 01/08/18 09:45 Total Protein 7.0 g/dl (6.4-8.2) 01/08/18 09:45 Albumin 3.6 g/dl (3.4-5.0) 01/08/18 09:45 CARDIAC ENZYMES Troponin I 0.02 ng/ml (0.00-0.05) 01/08/18 23:45 Microbiology 01/08/18 09:53 Blood - Peripheral Venous Blood Culture - Preliminary NO GROWTH OBTAINED AFTER 48 HOURS, INCUBATION TO CONTINUE FOR 3 DAYS. 01/08/18 09:53 Blood - Peripheral Venous Blood Culture - Preliminary NO GROWTH OBTAINED AFTER 48 HOURS, INCUBATION TO CONTINUE FOR 3 DAYS. Assessment: This is a 67 year old female with PMHx of a.fib, hypothyroidism, right sided CHF, mod MR, severe TR, who presented to the ED s/p syncope Plan: 1) Syncope - Per cards, likely 2/2 hypovolema - Patient reports feeling better - Carotid doppler with no evidence of hemodynamically significant stenosis - Patient had recent ECHO 11/2017: mild AVT, trace AI, MVT wtih mod MR, very severe TR with nl RV function and no PHTN, severe STAS, EF ~50%, cannot r/o small WMA, was in afib - Appreciate cardiology consult: no further inpatient cardiac workup 2) Acute fracture of left foot 3rd and 4th metatarsal - Continue with splint - TTWB with walker or crutches. Awaiting PT evaluation (patient has steps at home) - Appreciate ortho consult: f/u outpatient in 7-10 days 3) A.fib - Continue Eliquis - Continue Diltiazem - No changes to medications per cards 4) Right side CHF - Euvolemic per cards - Lasix 20mg daily, additional dose this afternoon 5) Hypothyroidism - Patient was recently told by pcp to decrease dose of Unithroid, patient reports she has not received the new dosing from her pharmacy yet. She does not know what the new dosing is - TSH 0.01. T4 1.68, T3 2.5 - Recommendation to decrease Unithroid to 125mcg with follow-up as outpatient in 4-6 weeks for repeat TSH testing. Patient is unable to take Synthroid, and unithroid is non-formulary here (patient is taking own med which is 137mcg). Will recommend starting Unithroid 125mcg on discharge 6) Dispo: - Awaiting SNF placement vs. home with services, patient was fatigued after walking about 5 feet with walker yesterday CODE STATUS: FULL CODE Visit type - Emergency Visit Emergency Visit: Yes ED Registration Date: 01/08/18 Care time: The patient presented to the Emergency Department on the above date and was hospitalized for further evaluation of their emergent condition. - New Patient This patient is new to me today: No - Critical Care Critical Care patient: No
[2018-01-11] MEDS: APIXABAN 5 MG TABLET PO SCH ×2 (10:08→21:39)
[2018-01-11] MEDS: FUROSEMIDE 20 MG TABLET (FP) PO SCH (10:08)
[2018-01-11] MEDS: BACITRACIN 15 GM TUBE TOPICAL OINTMENT TP SCH (10:11)
--- NOTE | 2018-01-11 10:38 | PN ---
Progress Note (short form) - Note Progress Note: cc: syncope s: no chest pain, palps, dizzy, lightheaded tele: afib occ, rvr Current Medications Generic Name Dose Route Start Last Admin Trade Name Freq PRN Reason Stop Dose Admin Acetaminophen 650 mg 01/08/18 14:29 01/10/18 17:37 Tylenol - PO 650 mg Q4H PRN Administration PAIN LEVEL 1-5 Apixaban 5 mg 01/08/18 22:00 01/11/18 10:08 Eliquis - PO 5 mg BID [facility] Administration Bacitracin 1 applic 01/08/18 14:45 01/11/18 10:11 Bacitracin - TP 1 applic DAILY [facility] Administration Diltiazem HCl 300 mg 01/11/18 10:39 Cardizem Cd - PO DAILY@0300 [facility] Furosemide 20 mg 01/09/18 10:00 01/11/18 10:08 Lasix - PO 20 mg DAILY [facility] Administration Miscellaneous 1 each 01/08/18 22:00 01/10/18 21:20 Lidoderm Patch Removal MC Not Given DAILY@2200 [facility] Morphine Sulfate 2 mg 01/08/18 14:45 01/10/18 18:33 Morphine Sulfate IVPUSH 2 mg Q6H PRN Administration PAIN LEVEL 7 - 10 Levothyroxine Sodium 0 mcg 01/09/18 03:00 01/11/18 02:49 (Unithroid) 137 Mcg PO 137 mcg Tablet (Pt's Own) DAILY@0300 [facility] Administration Ondansetron HCl 4 mg 01/08/18 20:30 01/10/18 18:34 Zofran Injection IVPUSH 4 mg Q6H PRN Administration NAUSEA AND/OR VOMITING Vital Signs: Vital Signs Period Temp Pulse Resp BP Sys/Ramirez Pulse Ox Last 24 Hr 97.4 F-98.1 F 80-96 16-20 106-132/59-75 95-95 NAD, calm no JVD irregular, nl S1, S2, III/ systolic murmur no edema abd soft nt, nd, nl bs aox3 Assessment/Plan Echo 11/2017 tds, mild AVT, trace AI, MVT wtih mod MR, very severe TR with nl RV function and no PHTN, severe STAS, EF ~50%, cannot r/o small WMA, was in afib. EKG: afib, nonspecific T wave changes CXR: no acute process 67F h/o afib on eliquis, CHF EF 50%, MR and TR p/w syncope syncope - likely in setting of hypovolemia, received IVF, lactate improved - trop neg x 2 - likely viral infection - monitor on tele, h/o arrhythmia however history more consistent with hypovolemia - cautious use of IVF due to h/o CHF - carotid ultrasound no significant stenosis Afib - continue diltiazem, eliquis - brief high rates episodes in setting of coughing, foot pain with walking. Will increase dilt from 240 to 300 qd right side CHF, mod MR, severe TR - euvolemic on exam - on lasix 20 mg BID at home, sometimes does not take PM dose if feels euvolemic , continue lasix 20 mg daily with additional dose of 20 mg prn
[2018-01-11] MEDS: ACETAMINOPHEN 325 MG TABLET (FP) PO PRN (19:04)
[2018-01-11] MEDS: LIDOCAINE PATCH REMOVAL MC SCH (21:40)
[2018-01-12] MEDS ORDERED: PT OWN MED DRAWER 7, Y5N ONE ×4 (01:14→12:16)
[2018-01-12] MEDS: LEVOTHYROXINE SODIUM 137 MCG PO SCH (02:15)
--- NOTE | 2018-01-12 09:04 | PN ---
Progress Note (short form) - Note Progress Note: cc: syncope s: no chest pain, palps, dizzy, lightheaded tele: afib occ, rvr Current Medications Acetaminophen (Tylenol -) 650 mg PO Q4H PRN PRN Reason: PAIN LEVEL 1-5 Last Admin: 01/11/18 19:04 Dose: 650 mg Apixaban (Eliquis -) 5 mg PO BID [facility] Last Admin: 01/11/18 21:39 Dose: 5 mg Bacitracin (Bacitracin -) 1 applic TP DAILY [facility] Last Admin: 01/11/18 10:11 Dose: 1 applic Diltiazem HCl (Cardizem Cd -) 300 mg PO DAILY@0300 [facility] Last Admin: 01/12/18 02:16 Dose: 300 mg Furosemide (Lasix -) 20 mg PO DAILY [facility] Last Admin: 01/11/18 10:08 Dose: 20 mg Miscellaneous (Lidoderm Patch Removal) 1 each MC DAILY@2200 [facility] Last Admin: 01/11/18 21:40 Dose: Not Given Levothyroxine Sodium (Unithroid) 137 Mcg Tablet (Pt's Own) 0 mcg PO DAILY@0300 [facility] Last Admin: 01/12/18 02:15 Dose: 137 mcg Ondansetron HCl (Zofran Injection) 4 mg IVPUSH Q6H PRN PRN Reason: NAUSEA AND/OR VOMITING Last Admin: 01/10/18 18:34 Dose: 4 mg Vital Signs: Vital Signs Period Temp Pulse Resp BP Sys/Ramirez Pulse Ox Last 24 Hr 97.6 F-98.2 F 76-90 18-20 117-139/53-90 95-96 NAD, calm no JVD irregular, nl S1, S2, III/ systolic murmur no edema abd soft nt, nd, nl bs aox3 Assessment/Plan Echo 11/2017 tds, mild AVT, trace AI, MVT wtih mod MR, very severe TR with nl RV function and no PHTN, severe STAS, EF ~50%, cannot r/o small WMA, was in afib. EKG: afib, nonspecific T wave changes CXR: no acute process 67F h/o afib on eliquis, CHF EF 50%, MR and TR p/w syncope syncope - likely in setting of hypovolemia, received IVF, lactate improved - trop neg x 2 - likely viral infection - monitor on tele, h/o arrhythmia however history more consistent with hypovolemia - cautious use of IVF due to h/o CHF - carotid ultrasound no significant stenosis Afib - continue diltiazem, eliquis - brief high rates episodes in setting of coughing, foot pain with walking. dilt increased to 300 mg daily, continue right side CHF, mod MR, severe TR - euvolemic on exam - on lasix 20 mg BID at home, sometimes does not take PM dose if feels euvolemic , continue lasix 20 mg daily with additional dose of 20 mg prn
[2018-01-12] MEDS: APIXABAN 5 MG TABLET PO SCH (10:49)
[2018-01-12] MEDS: ACETAMINOPHEN 325 MG TABLET (FP) PO PRN (10:49)
[2018-01-12] MEDS: BACITRACIN 15 GM TUBE TOPICAL OINTMENT TP SCH (10:49)
[2018-01-12] MEDS: FUROSEMIDE 20 MG TABLET (FP) PO SCH (10:49)
[2018-01-12 11:19] VITALS: BP 125/57; PULSE 86; TEMP 97.8
--- NOTE | 2018-01-12 11:44 | DS ---
Physical Exam: SUBJECTIVE: Patient seen and examined OBJECTIVE: Vital Signs Period Temp Pulse Resp BP Sys/Ramirez Pulse Ox Last 24 Hr 97.6 F-98.2 F 76-90 18-20 118-139/53-90 95-96 PHYSICAL EXAM GENERAL: The patient is awake, alert, and fully oriented, in no acute distress. HEAD: Normal with no signs of trauma. EYES: PERRL, extraocular movements intact, sclera anicteric, conjunctiva clear. ENT: Ears normal, nares patent, oropharynx clear without exudates, moist mucous membranes. NECK: Trachea midline, full range of motion, supple. LUNGS: Breath sounds equal, clear to auscultation bilaterally, no wheezes, no crackles, no accessory muscle use. HEART: Regular rate and rhythm, S1, S2 without murmur, rub or gallop. ABDOMEN: Soft, nontender, nondistended, normoactive bowel sounds, no guarding, no rebound, no hepatosplenomegaly, no masses. EXTREMITIES: 2+ pulses, warm, well-perfused, no edema. NEUROLOGICAL: Cranial nerves II through XII grossly intact. Normal speech, gait not observed. PSYCH: Normal mood, normal affect. SKIN: Warm, dry, normal turgor, no rashes or lesions noted. LABS HOSPITAL COURSE: Date of Admission:01/08/18 Date of Discharge: 01/12/18 Discharge Summary Reason For Visit: HEART FAILURE, A-FIB, SYNCOPE, FRACTURE LEFT FOOT Current Active Problems Right heart failure with preserved right ventricular function (Chronic) Pansinusitis (Acute) Mitral regurgitation (Chronic) Tricuspid regurgitation (Chronic) Hypokalemia (Acute) Lactic acidemia (Acute) Dehydration (Acute) Metatarsal fracture (Acute) Head trauma (Acute) Syncope (Acute) Atrial fibrillation, permanent (Chronic) Hypothyroidism (Chronic) Condition: Improved - Instructions Diet, Activity, Other Instructions: You were admitted after you passed out, fell and hit your head. In the fall you sustained fractures of the 3rd and 4th metatarsal bones of your left foot. A splint was applied and it is recommended that you ambulate with the use of a walker with toe touch weight bearing. You are advised to see an orthopedic surgeon in 1 week. In the hospital you were seen by Dr. Casey and his information is being provided. You may choose to see your own orthopedic surgeon. It was determined that you passed out from low blood pressure caused by dehydration. Your dose of Cardizem was increased because of fast heart rate. A new prescription for Cardizem and a prescription for Percocet were sent to [id number] in [place]. You are also advised to follow up with your PCP in 1 week regarding the dosing of Unithroid. You should follow a gluten free, low sodium diet. Disposition: HOME - Home Medications Comprehensive Discharge Medication List: Ambulatory Orders Apixaban [Eliquis] 5 mg PO BID 01/08/18 Levothyroxine Sodium [Unithroid] 137 mcg PO 0300 01/08/18 Walker [Ultra-Light Rollator] 1 each ASDIR #1 each 01/11/18 Bacitracin - [Bacitracin Topical Ointment -] 1 applic TP DAILY tube 01/12/18 Diltiazem Cd [Cardizem Cd -] 300 mg PO DAILY@0300 #30 cap.cd.24h 01/12/18 Furosemide [Lasix] 20 mg PO DAILY 1 Days #1 tab 01/12/18 Oxycodone HCl/Acetaminophen [Percocet 5-325 mg Tablet] 1 tab PO Q6H #10 tablet MDD 4 tabs 01/12/18
== END 2018-01-12 12:14 | disposition home or self-care (01) ==
LOC: JER 09:21 → JERBED 13:32 → UNDOADMOB 13:32 → INTOOBSV 13:32 → JERBED 14:29 → J4S 18:55
PROVIDERS: ADMIT Internal Medicine; ATTEND Internal Medicine
PROC: 2W3RX1Z Immobilization of Left Lower Leg using Splint (ICD-10-PCS; principal; 2018-01-08)
PROC: 3E033NZ Introduction of Analgesics, Hypnotics, Sedatives into Peripheral Vein, Percutaneous Approach (ICD-10-PCS; 2018-01-08)
PROC: 3E033GC Introduction of Other Therapeutic Substance into Peripheral Vein, Percutaneous Approach (ICD-10-PCS; 2018-01-08)
PROC: 3E0337Z Introduction of Electrolytic and Water Balance Substance into Peripheral Vein, Percutaneous Approach (ICD-10-PCS; 2018-01-08)
PROC: 3E0234Z Introduction of Serum, Toxoid and Vaccine into Muscle, Percutaneous Approach (ICD-10-PCS; 2018-01-08)
DX: R55 Syncope and collapse (principal); S92.332A Displaced fracture of third metatarsal bone, left foot, initial encounter for closed fracture; S92.342A Displaced fracture of fourth metatarsal bone, left foot, initial encounter for closed fracture; S09.90XA Unspecified injury of head, initial encounter; I48.2 Chronic atrial fibrillation; E03.9 Hypothyroidism, unspecified; E87.2 Acidosis; E87.6 Hypokalemia; I50.22 Chronic systolic (congestive) heart failure; I07.1 Rheumatic tricuspid insufficiency; I34.0 Nonrheumatic mitral (valve) insufficiency; K85.90 Acute pancreatitis without necrosis or infection, unspecified; W18.39XA Other fall on same level, initial encounter; Y93.89 Activity, other specified; Y92.89 Other specified places as the place of occurrence of the external cause; Y99.0 Civilian activity done for income or pay; J32.4 Chronic pansinusitis; Z88.0 Allergy status to penicillin; Z88.1 Allergy status to other antibiotic agents; Z88.6 Allergy status to analgesic agent; Z79.01 Long term (current) use of anticoagulants; Z91.012 Allergy to eggs; Z91.018 Allergy to other foods
CPT/HCPCS: 36415; 70450-TC; 71046-TC-FY; 72125-TC; 73610-TC-LT-FY; 73630-TC-LT; 80048; 80053; 81003; 81015; 82962; 83605; 83880; 84439; 84443; 84481; 84484; 85027; 85610; 85730; 87040; 90715; 93005; 93010; 93880-TC; 97116-GP; 97161-GP; 99284-25; G0378; J0131